=== PATIENT | female | born 1955 | race Caucasian/White ===

== ENCOUNTER 2019-02-27 09:48 | Emergency (ER) | payer OTHER ==
[~2019-02-27] VITALS: Ht 165.1 cm; Wt 72.3 kg
[2019-02-27 09:59] VITALS: Ht 165.1 cm; Wt 72.3 kg
[2019-02-27] MEDS ORDERED: CALCIUM 600 +1 EAC3 PO (10:00)
[2019-02-27] MEDS ORDERED: LIPITOR40 MG PO (10:00)
[2019-02-27] MEDS ORDERED: BENTYL10 MG PO (10:01)
[2019-02-27] MEDS ORDERED: ANUSOL-HC 2.5%30 GM RC (10:02)
[2019-02-27] MEDS ORDERED: FLORANEX / LACT1 TAB PO (10:02)
[2019-02-27] MEDS ORDERED: FLUTICASONE PRO16 GM NASAL (10:02)
[2019-02-27] MEDS ORDERED: NP THYROID90 MG PO (10:03)
[2019-02-27] MEDS ORDERED: OMEPRAZOLE20 M1 PO (10:03)
[2019-02-27] MEDS ORDERED: LISINOPRIL10 MG PO (10:03)
[2019-02-27] MEDS ORDERED: EFFEXOR XR150 MG PO (10:04)
[2019-02-27 10:35] LABS: HEMATOCRIT 37.5 % (36.0-48.0); LYMPHOCYTES 14.7 % (15-50); MCH 30.5 pg (26.0-34.0); MCHC 34.7 g/dL (31.0-37.0); MEAN PLATELET VOLUME 8.5 fL (7.4-10.4); NEUTROPHILS 78.8 % (40-80); PLATELET COUNT 194 10x3/uL (130-400); RBC 4.26 10x6/uL (4.00-5.40); RDW 12.8 % (11.5-14.5); WBC 8.4 10x3/uL (4.8-10.8)
[2019-02-27 10:40] LABS: APPEARANCE CLEAR (CLEAR); BILIRUBIN NEGATIVE (NEGATIVE); COLOR YELLOW (YELLOW); GLUCOSE NEGATIVE (NEGATIVE); KETONE NEGATIVE (NEGATIVE); NITRITE NEGATIVE (NEGATIVE); PROTEIN NEGATIVE (NEGATIVE); UROBILINOGEN NORMAL (NORMAL)
[2019-02-27 10:50] LABS: ALKALINE PHOSPHATASE 149 U/L (46-116); ALT (SGPT) 24 U/L (10-68); BILIRUBIN - TOTAL 0.44 mg/dL (0.2-1.3); CALC OSMOLALITY 276 mosm/kg (275-300); CALCIUM 9.4 mg/dL (8.5-10.1); CARBON DIOXIDE 30.7 mmol/L (21.0-32.0); CHLORIDE - SERUM 100 mmol/L (98-107); CREATININE - SERUM 0.7 mg/dL (0.6-1.3); GLUCOSE 126 mg/dL (74-106); POTASSIUM - SERUM 3.7 mmol/L (3.5-5.1); PROTEIN - SERUM 7.9 g/dL (6.4-8.2); SODIUM 137 mmol/L (136-145); UREA NITROGEN 16 mg/dL (7-18); eGFR NON AFRICAN AMERICAN 89 mL/min (90-120)
[2019-02-27 12:52] VITALS: BP 150/90
== END 2019-02-27 13:38 | disposition home or self-care (01) ==
LOC: D.ER 09:48
PROVIDERS: Family Medicine
DX: K92.2 Gastrointestinal hemorrhage, unspecified (principal)